=== PATIENT | female | born 1950 | race Caucasian/White ===

== ENCOUNTER 2022-02-07 06:18 | Inpatient (IN) ==
[2022-02-07] MEDS ORDERED: CeFAZolin Syr 2,000MG/20 ML 2,000 MG/20 ML SYRINGE IVPB ONE (06:31)
[2022-02-07] MEDS ORDERED: Ringers Solution, Lactated 1,000 ML IVC SCH (06:45)
[2022-02-07] MEDS ORDERED: Lidocaine -MPF 2% 2 ML VIAL ONE (07:36)
[2022-02-07] MEDS ORDERED: Ondansetron 4 MG/2 ML VIAL ONE (07:36)
[2022-02-07] MEDS ORDERED: *HR* Rocuronium Bromide 50 MG/5 ML VIAL ONE (07:36)
[2022-02-07] MEDS ORDERED: *HR* Midazolam HCl 2 MG/2 ML VIAL ONE (07:37)
[2022-02-07] MEDS ORDERED: *HR* Propofol 200 MG/20 ML VIAL IVP ONE ×2 (07:37→11:10)
[2022-02-07] MEDS ORDERED: *HR* FentaNYL (PF) 100 MCG/2 ML VIAL ONE (07:37)
[2022-02-07] MEDS ORDERED: Heparin 1,000 UNITS/500 mL 500 ML ONE (07:39)
[2022-02-07] MEDS ORDERED: Heparin 1,000 UNITS/500 mL 1,000 ML ONE (07:44)
[2022-02-07] MEDS ORDERED: Protamine Sulfate 50 MG/5 ML VIAL IVP ONE (07:44)
[2022-02-07] MEDS ORDERED: EPINEPHrine 1 MG/ML VIAL ONE (07:46)
[2022-02-07] MEDS ORDERED: *HR* Phenylephrine 10 MG/ML VIAL ONE (07:46)
[2022-02-07] MEDS ORDERED: niCARdipine 20 MG/200 ML MLS IVC ONE (08:03)
[2022-02-07] MEDS ORDERED: Ondansetron 4 MG/2 ML VIAL IVP PRN ×2 (08:17→12:41)
[2022-02-07] MEDS ORDERED: *HR* OxyCODONE Immed Rel 5 MG TABLET PO PRN ×2 (08:17→12:41)
[2022-02-07] MEDS ORDERED: *HR* HYDROmorphone PF 0.5 MG/0.5 ML SYRINGE IVP PRN (08:17)
[2022-02-07] MEDS ORDERED: EPHEDrine 50 MG/ML VIAL ONE (08:40)
[2022-02-07] MEDS ORDERED: *HR* Heparin 5,000 UNIT/ML VIAL ONE (08:51)
[2022-02-07] MEDS ORDERED: *HR* HYDROMORPHONE 2 MG/ML VIAL ONE (09:39)
[2022-02-07] MEDS ORDERED: Sugammadex Sodium 200 MG/2 ML VIAL IV ONE (11:02)
[2022-02-07] MEDS ORDERED: *HR* Labetalol 20 MG/4 ML SYRINGE IVP PRN (12:41)
[2022-02-07] MEDS ORDERED: Acetaminophen 325 MG TABLET PO PRN (12:41)
[2022-02-07] MEDS ORDERED: Naloxone 0.4 MG/ML INJ IVP PRN (12:41)
[2022-02-07] MEDS: *HR* HYDROcodone/Acet 5/325 mg TABLET PO PRN ×2 (13:15→22:18)
[2022-02-07] MEDS ORDERED: ceFAZolin 1,000 MG, Sodium Chloride IRRigation 1,000 ML IR ONE (14:00)
[2022-02-07] MEDS: *HR* Metformin 500 MG TABLET PO SCH (16:42)
[2022-02-07] MEDS: CeFAZolin 2 GM/120 ML BAG IVPB SCH (16:44)
[2022-02-08] MEDS: CeFAZolin 2 GM/120 ML BAG IVPB SCH ×2 (00:09→09:16)
[2022-02-08 05:52] LABS: Basophils % 0.2 %; Eosinophils # 0.1 K/mcL (0.0-0.6); Eosinophils % 0.6 %; Hematocrit 32.9 % (35.3-44.9); Hemoglobin 10.1 g/dL (11.5-15.4); Immature Granulocytes % 0.3 % (0-4); Lymphocytes % 35.6 %; Mean Corpuscular HGB Conc 30.7 g/dL (31.6-35.5); Mean Corpuscular Hemoglobin 30.4 pg (28.0-33.3); Mean Corpuscular Volume 99.1 fL (83.0-100.0); Mean Platelet Volume 10.8 fL (9.4-12.4); Monocytes # 0.8 K/mcL (0.0-1.3); Monocytes % 7.3 %; Neutrophils # 6.2 K/mcL (1.6-8.9); Platelet Count 166 K/mcL (140-400); Red Blood Count 3.32 M/mcL (3.82-4.97); Red Cell Distribution Width 13.4 % (11.5-14.5); White Blood Count 11.1 K/mcL (4.3-11.1)
[2022-02-08 06:12] LABS: BUN/Creatinine Ratio 14 (6-26); Blood Urea Nitrogen 11 mg/dL (8-23); Calcium 9.7 mg/dL (8.6-10.3); Carbon Dioxide 29 mEq/L (23-29); Chloride 107 mEq/L (98-107); Glucose 99 mg/dL (70-105); Osmolality,Calculated 289 (280-300); Potassium 3.8 mEq/L (3.5-5.1); Sodium 140 mEq/L (136-145); eGFR For African Americans > 60 (> 60); eGFR For Non-African Americans > 60 (> 60)
[2022-02-08] MEDS ORDERED: Venlafaxine XR (24 HR) 75 MG CAP.ER.24H PO SCH (09:00)
[2022-02-08] MEDS ORDERED: NON-FORMULARY MEDICATION 1 EACH EACH (Omega3/Dha/Epa/Fish Oil/Vit D3 [Fish Oil + Vitamin D PO SCH (09:00)
[2022-02-08] MEDS ORDERED: Aspirin Enteric Coated 81 MG Tablet PO SCH (09:00)
[2022-02-08] MEDS: *HR* Metformin 500 MG TABLET PO SCH (09:15)
[2022-02-08] MEDS: *HR* HYDROcodone/Acet 5/325 mg TABLET PO PRN (09:15)
[2022-02-08 15:28] VITALS: PULSE 66
[2022-02-08 15:51] VITALS: BP 146/57; TEMP 97.8; O2SAT 97
== END 2022-02-08 14:30 | disposition home or self-care (01) | DRG 39 ==
LOC: SAMDAY 06:18 → 2NNU 12:34
PROVIDERS: ADMIT Surgery Vascular Surgery; ATTEND Surgery Vascular Surgery